=== PATIENT | male | born 1965 | race Caucasian/White ===

== ENCOUNTER 2022-02-14 10:40 | Day surgery (SDC) | payer OTHER ==
[~2022-02-14] VITALS: Ht 185.4 cm; Wt 95.7 kg
[2022-02-14] MEDS ORDERED: fentaNYL citrate 0.05 MG/ML VIAL ONE (12:14)
[2022-02-14] MEDS ORDERED: diphenhydrAMINE 50 MG/ML VIAL ONE (12:14)
[2022-02-14] MEDS ORDERED: LIDOCAINE 2% 100 MG/5 ML UJET TP ONE (12:15)
[2022-02-14] MEDS ORDERED: MIDAZOLAM 2 MG/2 ML VIAL ONE (12:15)
[2022-02-14] MEDS ORDERED: fentaNYL citrate 0.05 MG/ML VIAL IVP ONE (13:40)
[2022-02-14] MEDS ORDERED: MIDAZOLAM 2 MG/2 ML VIAL IVP ONE (13:40)
== END 2022-02-14 13:50 | disposition home or self-care (01) ==
LOC: MDS 10:40 → MMU 10:41 → MDS 13:50
PROVIDERS: ATTEND Internal Medicine Gastroenterology
DX: Z12.11 Encounter for screening for malignant neoplasm of colon (principal); E78.5 Hyperlipidemia, unspecified; F17.210 Nicotine dependence, cigarettes, uncomplicated; Z80.0 Family history of malignant neoplasm of digestive organs; Z79.899 Other long term (current) drug therapy; Z20.822 Contact with and (suspected) exposure to COVID-19
CPT/HCPCS: 45378; 87426; J2250; J3010; J1200

== ENCOUNTER 2023-08-16 06:53 | Day surgery (SDC) | payer OTHER ==
[~2023-08-16] VITALS: Ht 185.4 cm; Wt 99.8 kg
[2023-08-16] MEDS ORDERED: fentaNYL citrate 0.05 MG/ML VIAL ONE (08:12)
[2023-08-16] MEDS: fentaNYL citrate 0.05 MG/ML VIAL IVP ONE (08:27)
[2023-08-16] MEDS: LIDOCAINE 2% 100 MG/5 ML UJET TP ONE (08:40)
== END 2023-08-16 10:05 | disposition home or self-care (01) ==
LOC: MDS 06:53 → MMU 06:56 → MDS 10:05
PROVIDERS: ATTEND Internal Medicine Gastroenterology
DX: Z09 Encounter for follow-up examination after completed treatment for conditions other than malignant neoplasm (principal); K63.5 Polyp of colon; K62.1 Rectal polyp; Z86.010 Personal history of colon polyps; Z79.899 Other long term (current) drug therapy; Z98.890 Other specified postprocedural states
CPT/HCPCS: 45385; J3010